=== PATIENT | male | born 1950 | race Caucasian/White ===

== ENCOUNTER 2020-05-24 10:33 | Outpatient (REF) | payer MEDICARE, SELFPAY | END 2020-05-24 10:34 | disposition home or self-care (01) | LOC: HO.MDS 10:33 | PROVIDERS: PCP Internal Medicine; Visit Provider Psychiatry & Neurology Neurology | DX: G61.81 Chronic inflammatory demyelinating polyneuritis (principal) | CPT/HCPCS: 96365; 96366 ==

== ENCOUNTER 2020-06-21 08:23 | Outpatient (REF) | payer MEDICARE, SELFPAY | END 2020-06-21 08:24 | disposition home or self-care (01) | LOC: HO.MDS 08:23 | PROVIDERS: PCP Internal Medicine; Visit Provider Psychiatry & Neurology Neurology | DX: G61.81 Chronic inflammatory demyelinating polyneuritis (principal) | CPT/HCPCS: 96365; 96366; J1572 ==

== ENCOUNTER 2020-07-19 08:05 | Outpatient (REF) | payer MEDICARE, SELFPAY | END 2020-07-19 08:06 | disposition home or self-care (01) | LOC: HO.MDS 08:05 | PROVIDERS: PCP Internal Medicine; Visit Provider Psychiatry & Neurology Neurology | DX: G61.81 Chronic inflammatory demyelinating polyneuritis (principal) | CPT/HCPCS: 96365; 96366; J1572 ==

== ENCOUNTER 2020-07-23 08:05 | Outpatient (REF) | payer MEDICARE, SELFPAY ==
[2020-07-23 09:14] LABS: Anion Gap 12 (12-20); Blood Urea Nitrogen 12 mg/dL (9-16); Calcium 8.6 mg/dL (8.4-10.2); Carbon Dioxide 26 mmol/L (22-29); Chloride 106 mmol/L (96-108); Estimated Glomerular Filt Rate > 60; Glucose Random 77 mg/dL (60-115); Potassium 3.7 mmol/l (3.3-5.1); Sodium 140 mmol/L (135-145)
[2020-07-23 09:45] LABS: Erythrocyte Sedimentation Rate 23 MM/HR (0-15)
== END 2020-07-23 08:06 | disposition home or self-care (01) ==
LOC: HO.LAB 08:05
PROVIDERS: Visit Provider Psychiatry & Neurology Neurology
DX: G61.81 Chronic inflammatory demyelinating polyneuritis (principal)
CPT/HCPCS: 36415; 80048; 82550; 85652

== ENCOUNTER 2020-08-16 07:53 | Outpatient (REF) | payer MEDICARE, SELFPAY | END 2020-08-16 07:54 | disposition home or self-care (01) | LOC: HO.MDS 07:53 | PROVIDERS: Visit Provider Psychiatry & Neurology Neurology | DX: G61.81 Chronic inflammatory demyelinating polyneuritis (principal) | CPT/HCPCS: 96365; 96366; J1572 ==

== ENCOUNTER 2020-09-13 07:36 | Outpatient (REF) | payer MEDICARE, SELFPAY | END 2020-09-13 07:37 | disposition home or self-care (01) | LOC: HO.MDS 07:36 | PROVIDERS: Visit Provider Internal Medicine | DX: G61.81 Chronic inflammatory demyelinating polyneuritis (principal) | CPT/HCPCS: 96365; 96366; J1572 ==

== ENCOUNTER 2020-10-31 09:50 | Outpatient (REF) | payer MEDICARE, SELFPAY | END 2020-10-31 09:51 | disposition home or self-care (01) | LOC: HO.MDS 09:50 | PROVIDERS: Visit Provider Psychiatry & Neurology Neurology | DX: G61.81 Chronic inflammatory demyelinating polyneuritis (principal) | CPT/HCPCS: 96365; 96366; J1572 ==

== ENCOUNTER 2021-06-09 09:34 | Outpatient (REF) | payer MEDICARE, SELFPAY ==
[2021-06-09 10:27] LABS: Anion Gap 11 (12-20); Blood Urea Nitrogen 20 mg/dL (9-16); Calcium 9.9 mg/dL (8.4-10.2); Carbon Dioxide 28 mmol/L (22-29); Chloride 107 mmol/L (96-108); Estimated Glomerular Filt Rate > 60; Glucose Random 100 mg/dL (60-115); Potassium 4.4 mmol/L (3.3-5.1); Sodium 142 mmol/L (135-145)
== END 2021-06-09 09:35 | disposition home or self-care (01) ==
LOC: HO.LAB 09:34
PROVIDERS: Visit Provider Psychiatry & Neurology Neurology
DX: G61.81 Chronic inflammatory demyelinating polyneuritis (principal)
CPT/HCPCS: 36415; 80048

== ENCOUNTER 2021-07-07 10:17 | Outpatient (REF) | payer MEDICARE, SELFPAY | END 2021-07-07 10:18 | disposition home or self-care (01) | LOC: HO.MDS 10:17 | PROVIDERS: Visit Provider Psychiatry & Neurology Neurology | DX: G61.81 Chronic inflammatory demyelinating polyneuritis (principal) | CPT/HCPCS: 96365; 96366; J1569 ==

== ENCOUNTER 2021-07-08 10:05 | Outpatient (REF) | payer MEDICARE, SELFPAY | END 2021-07-08 10:06 | disposition home or self-care (01) | LOC: HO.MDS 10:05 | PROVIDERS: Visit Provider Psychiatry & Neurology Neurology | DX: G61.81 Chronic inflammatory demyelinating polyneuritis (principal) | CPT/HCPCS: 96365; 96366; J1569 ==

== ENCOUNTER 2021-07-09 13:28 | Outpatient (REF) | payer MEDICARE, SELFPAY | END 2021-07-09 13:29 | disposition home or self-care (01) | LOC: HO.MDS 13:28 | PROVIDERS: Visit Provider Psychiatry & Neurology Neurology | DX: G61.81 Chronic inflammatory demyelinating polyneuritis (principal) | CPT/HCPCS: 96365; 96366; J1569 ==

== ENCOUNTER 2021-07-10 09:51 | Outpatient (REF) | payer MEDICARE, SELFPAY | END 2021-07-10 09:52 | disposition home or self-care (01) | LOC: HO.MDS 09:51 | PROVIDERS: Visit Provider Psychiatry & Neurology Neurology | DX: G61.81 Chronic inflammatory demyelinating polyneuritis (principal) | CPT/HCPCS: 96365; 96366; J1569 ==

== ENCOUNTER 2021-07-11 09:49 | Outpatient (REF) | payer MEDICARE, SELFPAY | END 2021-07-11 09:50 | disposition home or self-care (01) | LOC: HO.MDS 09:49 | PROVIDERS: Visit Provider Psychiatry & Neurology Neurology | DX: G61.81 Chronic inflammatory demyelinating polyneuritis (principal) | CPT/HCPCS: 96365; 96366; J1569 ==